=== PATIENT | male | born 1945 | race Caucasian/White ===

== ENCOUNTER 2020-07-12 13:50 | Emergency (ER) | payer MEDICARE, BC ==
--- NOTE | 2020-07-12 14:46 | EDM.PDOC ---
ED HPI GENERAL MEDICAL PROBLEM - General Chief Complaint: Bite:Animal, Insect Stated Complaint: WOOD TICK BITE PULL OFF THIS AM Time Seen by Provider: 07/12/20 14:35 Source of Information: Reports: Patient History Limitations: Reports: No Limitations - History of Present Illness INITIAL COMMENTS - FREE TEXT/NARRATIVE: 74-year-old male who was bitten by a tick on his right hip. He pulled the tick off this morning, it is red, inflamed, and it may have been there for up to 4 days. He has no systemic symptoms at this time but he was treated for anaplasmosis 4 months ago and is very concerned he may get it again. He is not a diabetic. No fevers or chills. Onset: Unknown/Unsure Duration: Day(s): (Duration 1 to 4 days) Associated Symptoms: Reports: No Other Symptoms. Denies: Cough, Fever/Chills, Headaches, Nausea/Vomiting - Related Data Allergies Allergy/AdvReac Type Severity Reaction Status Date / Time cephalexin [Cephalexin] Allergy Diarrhea Verified 07/12/20 14:28 Penicillins Allergy Diarrhea Verified 07/12/20 14:28 Home Meds: Home Meds Cholecalciferol (Vitamin D3) [Vitamin D3] 5,000 unit PO DAILY 02/26/14 [History] Clobetasol [Clobetasol Propionate 0.05%] 1 applic TOP BID PRN 02/26/14 [History] Saw [place] Fruit [Saw [place]] 450 mg PO DAILY 02/26/14 [History] Vitamin B Complex 1 each PO DAILY 02/26/14 [History] Past Medical History - Past Surgical History Head Surgeries/Procedures: Reports: Other (See Below) Social & Family History - Tobacco Use Tobacco Use Status *Q: Never Tobacco User ED ROS GENERAL - Review of Systems Review Of Systems: See Below Constitutional: Denies: Fever, Chills, Malaise Respiratory: Denies: Shortness of Breath Cardiovascular: Denies: Chest Pain GI/Abdominal: Denies: Nausea, Vomiting Musculoskeletal: Denies: Joint Pain Skin: Reports: Erythema (Small patch of erythema on the right upper hip) Neurological: Reports: No Symptoms ED EXAM, ANIMAL BITE - Physical Exam Exam: See Below Exam Limited By: No Limitations General Appearance: Alert, No Apparent Distress Respiratory/Chest: No Respiratory Distress Neurological: Alert, Oriented Psychiatric: Normal Affect, Normal Mood Skin Exam: Other (Small 1.5 cm nonblanching round patch of redness with a dark center on the right hip just above the iliac crest. Nontender) Course - Vital Signs Last Recorded V/S: Last Vital Signs Temp 95.9 F L 07/12/20 14:35 Pulse 72 07/12/20 14:35 Resp 14 07/12/20 14:35 BP 126/80 07/12/20 14:35 Pulse Ox 98 07/12/20 14:35 - Re-Assessments/Exams Free Text/Narrative Re-Assessment/Exam: 07/12/20 14:50 This patient pulled a deer tick off of his right upper hip this morning which may have been present for up to 4 days. His previous anaplasmosis was treated with a full course of doxycycline and he responded well without side effects. He is very concerned with his fight and not receiving another course of treatment. He was placed on 10 days of doxycycline 200 mg twice daily, can return anytime if worsening despite treatment Departure - Departure Time of Disposition: 15:07 Disposition: Home, Self-Care 01 Clinical Impression: Tick bite of hip Qualifiers: Encounter type: initial encounter Laterality: right Qualified Code(s): S70.261A - Insect bite (nonvenomous), right hip, initial encounter - Discharge Information Instructions: Tick Bite Information, Adult, [id number] Referrals: PCP,None [Primary Care Provider] - Forms: ED Department Discharge Care Plan Goals: Take antibiotic twice daily until gone as directed. Keep bite wound clean and dry while healing. Recheck anytime if worsening or concerns despite treatment. Sepsis Event Note (ED) - Evaluation Sepsis Screening Result: No Definite Risk - Focused Exam Vital Signs: Vital Signs Temp Pulse Resp BP Pulse Ox 07/12/20 14:35 95.9 F L 72 14 126/80 98
== END 2020-07-12 15:07 | disposition home or self-care (01) ==
LOC: JP.ED 13:50
DX: S70.261A Insect bite (nonvenomous), right hip, initial encounter (principal); Z88.0 Allergy status to penicillin; Z88.1 Allergy status to other antibiotic agents; W57.XXXA Bitten or stung by nonvenomous insect and other nonvenomous arthropods, initial encounter
CPT/HCPCS: 99282; 99283